=== PATIENT | male | born 1980 | race Caucasian/White ===

== ENCOUNTER 2016-07-21 21:48 | Emergency (ER) | payer MEDICARE, OTHER ==
[~2016-07-21] VITALS: Ht 190.5 cm; Wt 90.7 kg
[~2016-07-21 21:48] MED LIST: CLARITIN10 MG PO; ZITHROMAX Z PA250 MG PO
[2016-07-21 22:00] VITALS: BP 125/82
[2016-07-21 23:58] LABS: BASO % 0.6 % (0.0-1.0); EOS # 0.4 10*3/uL (0.0-0.4); EOS % 8.1 % (1.0-4.0); HEMATOCRIT 37.9 % (42.0-52.0); HEMOGLOBIN 12.5 g/dl (14.0-18.0); LYMPH # 1.7 10*3/uL (1.3-4.4); LYMPH % 35.3 % (27.0-41.0); MEAN CELL VOLUME 96.9 fl (80.0-94.0); MEAN PLATELET VOLUME 12.9 fl (9.6-12.3); MONO # 0.4 10*3/uL (0.1-1.0); MONO % 7.9 % (3.0-9.0); NEUT # 2.2 10*3/uL (2.3-7.9); NEUT % 47.7 % (47.0-73.0); PLATELET COUNT AUTOMATED 121 10*3/uL (130-400); RED BLOOD COUNT 3.91 10*6/uL (4.50-5.90); RED CELL DISTRI WIDTH 13.3 % (0-14.5); WHITE BLOOD COUNT 4.7 10*3/uL (4.8-10.8)
[2016-07-22 00:08] LABS: INTERNATIONAL NORM RATIO 1.1 (2.0-3.5)
[2016-07-22 00:14] LABS: ALBUMIN 3.3 gm/dl (3.1-4.5); ALKALINE PHOSPHATASE 177 U/L (45-117); BILIRUBIN, DIRECT 0.2 mg/dL (0.0-0.2); BILIRUBIN, TOTAL 0.7 mg/dl (0.2-1.0); BUN 25 mg/dl (7-24); CARBON DIOXIDE 31 mmol/L (21-32); CHLORIDE 103 mmol/L (98-107); EST GLOM FILT AFRICAN AMERICAN > 60 ml/min; GLUCOSE 86 mg/dL (65-99); MAGNESIUM 2.1 mg/dL (1.5-2.1); POTASSIUM 4.1 mmol/L (3.5-5.1); SGPT/ALT 47 U/L (12-78); SODIUM 143 mmol/L (136-145); TOTAL PROTEIN 7.5 gm/dL (6.4-8.2)
[2016-07-22 00:15] LABS: SGOT/AST 20 IU/L (3-35)
[2016-07-22 00:16] LABS: TROPONIN I < 0.015 ng/ml (<0.045)
[2016-07-22] MEDS ORDERED: CELEXA40 MG PO (00:22)
[2016-07-22] MEDS ORDERED: BACLOFEN20 M1 PO (00:22)
[2016-07-22] MEDS ORDERED: MY FAVORITE MU237 ML PEG (00:23)
[2016-07-22] MEDS ORDERED: DEPAKOTE250 MG PEG (00:24)
[2016-07-22] MEDS ORDERED: DOCUSATE S100 MG/10 PEG (00:26)
[2016-07-22] MEDS ORDERED: FLONASE ALLERG9.9 ML NAS (00:27)
[2016-07-22] MEDS ORDERED: FENTANYL25 MCG/HR TD (00:27)
[2016-07-22] MEDS ORDERED: METOPROLOL25 MG PEG (00:28)
[2016-07-22] MEDS ORDERED: NEURONTIN100 MG PEG (00:29)
[2016-07-22] MEDS ORDERED: RISPERDAL0.5 MG PEG (00:29)
[2016-07-22] MEDS ORDERED: RISPERDAL1 M1 PEG (00:30)
[2016-07-22] MEDS ORDERED: RISPERDAL2 M1 PEG (00:31)
[2016-07-22] MEDS ORDERED: ZINC SULFATE220 M2 PEG (00:32)
[2016-07-22] MEDS ORDERED: MAGNESIUM ELEM300 MG PEG (00:34)
[2016-07-22] MEDS ORDERED: BISACODYL10 MG RC (00:35)
[2016-07-22] MEDS ORDERED: MILK OF MA400 MG/5 M PEG (00:36)
[2016-07-22] MEDS ORDERED: NORCO 5-325 TA1 EACH PEG (00:37)
== END 2016-07-22 03:57 | disposition home or self-care (01) ==
LOC: ED 21:48
PROVIDERS: Emergency Medicine
DX: R05 Cough (principal); Z88.0 Allergy status to penicillin; Z88.8 Allergy status to other drugs, medicaments and biological substances; Z90.49 Acquired absence of other specified parts of digestive tract; Z79.899 Other long term (current) drug therapy

== ENCOUNTER → 2016-08-10 | Outpatient (CLI) | payer MEDICARE, OTHER ==
[~2016-08-10] MED LIST changes: +BACLOFEN20 M1 PO; +BISACODYL10 MG RC; +CELEXA40 MG PO; +DEPAKOTE250 MG PEG; +DOCUSATE S100 MG/10 PEG; +FENTANYL25 MCG/HR TD; +FLONASE ALLERG9.9 ML NAS; +MAGNESIUM ELEM300 MG PEG; +METOPROLOL25 MG PEG; +MILK OF MA400 MG/5 M PEG; +MY FAVORITE MU237 ML PEG; +NEURONTIN100 MG PEG; +NORCO 5-325 TA1 EACH PEG; +RISPERDAL0.5 MG PEG; +RISPERDAL1 M1 PEG; +RISPERDAL2 M1 PEG; +ZINC SULFATE220 M2 PEG
== END | disposition home or self-care (01) ==
LOC: CT 12:15
DX: Z12.11 Encounter for screening for malignant neoplasm of colon (principal); E44.1 Mild protein-calorie malnutrition; R73.9 Hyperglycemia, unspecified; D53.9 Nutritional anemia, unspecified; R93.8 Abnormal findings on diagnostic imaging of other specified body structures; F20.9 Schizophrenia, unspecified; G62.9 Polyneuropathy, unspecified; I10 Essential (primary) hypertension; K94.23 Gastrostomy malfunction; L89.90 Pressure ulcer of unspecified site, unspecified stage; R05 Cough; R09.89 Other specified symptoms and signs involving the circulatory and respiratory systems

== ENCOUNTER 2016-09-12 17:22 | Emergency (ER) | payer MEDICARE, OTHER ==
[~2016-09-12] VITALS: Ht 177.8 cm; Wt 68.0 kg
[2016-09-12 18:25] LABS: BASO % 0.2 % (0.0-1.0); EOS # 0.1 10*3/uL (0.0-0.4); EOS % 2.5 % (1.0-4.0); HEMATOCRIT 44.4 % (42.0-52.0); HEMOGLOBIN 14.4 g/dl (14.0-18.0); LYMPH # 1.6 10*3/uL (1.3-4.4); LYMPH % 30.1 % (27.0-41.0); MEAN CELL VOLUME 97.6 fl (80.0-94.0); MEAN CORPUSCULAR HGB 31.6 pg (27.0-31.0); MEAN CORPUSCULAR HGB CONC 32.4 g/dl (33.0-37.0); MEAN PLATELET VOLUME 13.5 fl (9.6-12.3); MONO # 0.6 10*3/uL (0.1-1.0); MONO % 10.8 % (3.0-9.0); NEUT % 56.2 % (47.0-73.0); PLATELET COUNT AUTOMATED 116 10*3/uL (130-400); RED BLOOD COUNT 4.55 10*6/uL (4.50-5.90); RED CELL DISTRI WIDTH 13.5 % (0-14.5); WHITE BLOOD COUNT 5.3 10*3/uL (4.8-10.8)
[2016-09-12 18:41] LABS: ALBUMIN 3.6 gm/dl (3.1-4.5); ALKALINE PHOSPHATASE 176 U/L (45-117); BILIRUBIN, TOTAL 0.5 mg/dl (0.2-1.0); BUN 21 mg/dl (7-24); CARBON DIOXIDE 31 mmol/L (21-32); CHLORIDE 108 mmol/L (98-107); EST GLOM FILT AFRICAN AMERICAN > 60 ml/min; GLUCOSE 91 mg/dL (65-99); POTASSIUM 4.1 mmol/L (3.5-5.1); SGOT/AST 41 IU/L (3-35); SGPT/ALT 105 U/L (12-78); SODIUM 147 mmol/L (136-145); TOTAL PROTEIN 7.5 gm/dL (6.4-8.2)
[2016-09-12 18:42] LABS: TROPONIN I < 0.015 ng/ml (<0.045)
[2016-09-12] MEDS ORDERED: FLUCONAZOLE100 MG PO (20:34)
[2016-09-12 20:49] VITALS: BP 116/71
== END 2016-09-12 20:59 | disposition home or self-care (01) ==
LOC: ED 17:22
PROVIDERS: Nurse Practitioner Family
DX: B37.0 Candidal stomatitis (principal); Z88.0 Allergy status to penicillin; Z88.8 Allergy status to other drugs, medicaments and biological substances; Z90.49 Acquired absence of other specified parts of digestive tract; Z79.899 Other long term (current) drug therapy

== ENCOUNTER → 2016-10-05 | Outpatient (CLI) | payer MEDICARE, OTHER ==
[~2016-10-05] MED LIST changes: +FLUCONAZOLE100 MG PO
== END | disposition home or self-care (01) ==
LOC: RAD 10:03
DX: J40 Bronchitis, not specified as acute or chronic (principal); L98.419 Non-pressure chronic ulcer of buttock with unspecified severity; M25.551 Pain in right hip; M25.552 Pain in left hip; M24.652 Ankylosis, left hip; M24.651 Ankylosis, right hip; R09.89 Other specified symptoms and signs involving the circulatory and respiratory systems

== ENCOUNTER → 2016-10-10 | Outpatient (CLI) | payer MEDICARE, OTHER ==
--- NOTE | ~2016-10-10 | WRIGHTHP ---
[place], [place] PATIENT HISTORY AND PHYSICAL EXAM NAME: SOTO GONZALEZ [facility] #: [id number] UNIT #: [id number] ROOM: DOCTOR: VAL CaliCORBY BIRTHDATE: [birth year] DOS: 10/10/2016 CHIEF COMPLAINT: Pressure ulcer of the buttock area. HISTORY OF PRESENT ILLNESS: This is a 36-year-old male with a history of traumatic brain injury in 2010. He is a nonverbal paraplegic who has been in the [facility] for several years now, but now currently is at home. His mother is taking care of. She brought him in as there was a concern that he did have a pressure ulcer on the left buttock area. He has home health as well and she says they have been using any dressing that is available, sometimes a foam, sometimes a gauze, some type of silver type of wound product, she is not sure which one, but she was worried about it and wanted him to be evaluated. PAST MEDICAL HISTORY: Significant for an appendectomy 1999, hernia repair at the age of 7, paraplegia, nonverbal, traumatic brain injury. There is a history of hypertension. He has a PEG tube placement, history of broken neck, chronic bronchitis, Halo placement in 2010. ALLERGIES: PENICILLIN, BENZOCAINE AND PENICILLIN G. SOCIAL HISTORY: He is a former smoker. He is single, currently lives at home with his mother. No drug use or alcohol use is noted. MEDICATIONS: Neurontin 100 mg daily, valproic acid 250 daily, Risperdal 1 mg daily, metoprolol 25 b.i.d., hydrocodone and acetaminophen 5/325 one q. 6 hours, citalopram 40 mg daily and baclofen 10 mg t.i.d. REVIEW OF SYSTEMS: Unobtainable. He is able to motion with his hands at some points. He does seem to follow some commands. He does not appear to complain of pain with the pressure ulcer, which is located in the left buttock area. OBJECTIVE: VITAL SIGNS: Stable. Temperature 98.7, pulse of 74, respirations 18, blood pressure is 84/46. GENERAL: This is a male who appears older than his stated age, cachectic, chronically ill-appearing, slightly pale to examination. HEENT: Sclerae anicteric. His tongue is moist. He does have a facial grimace. He is contracted. He is in no acute distress. NECK: There is no JVD. LUNGS: Clear to auscultation. CARDIOVASCULAR: S1, S2 regular rate and rhythm. No murmur appreciable. ABDOMEN: Soft. EXTREMITIES: There is no calf tenderness. The patient was examined where the ulcer had been as there is an area of what appears to be a healed ulcer on the left buttock, it is not opened at the present time, it is scabbed over, this is a little bit of dry skin, but otherwise it appears healed. ASSESSMENT AND PLAN: Healed pressure ulcer. At this point, the patient will be discharged from the wound clinic. I would keep the area continued to be [place], [place] PATIENT HISTORY AND PHYSICAL EXAM NAME: SOTO GONZALEZ UNIT #: [id number] ROOM: DOCTOR: CORBY NEAL M.D. BIRTHDATE: [birth year] protected with a foam dressing for now. His mother is here and appears to be aware of causes of pressure ulcers and now that the wound is healed at this point, we will continue to keep it protected for the next couple of weeks. If for some reason it reopens and he needs to come back to the wound clinic, we would be happy to see him. CORBY NEAL MD CM:HISPHYS:PATIENT HISTORY AND PHYSICAL EXAMINATION [id number] CORBY NEAL M.D. 10/11/16 0747 interface
== END ==
LOC: WOUNDCARE 02:07
DX: L89.329 Pressure ulcer of left buttock, unspecified stage (principal); I10 Essential (primary) hypertension; G82.20 Paraplegia, unspecified; Z87.891 Personal history of nicotine dependence

== ENCOUNTER 2016-11-07 09:21 | Emergency (ER) | payer MEDICARE, OTHER ==
[~2016-11-07] VITALS: Ht 182.8 cm; Wt 90.7 kg
[2016-11-07 09:29] VITALS: BP 109/62
== END 2016-11-07 11:38 | disposition home or self-care (01) ==
LOC: ED 09:21
DX: K94.23 Gastrostomy malfunction (principal); Z88.0 Allergy status to penicillin; Z88.4 Allergy status to anesthetic agent; Z79.899 Other long term (current) drug therapy; Z90.49 Acquired absence of other specified parts of digestive tract

== ENCOUNTER → 2016-11-07 | Outpatient (CLI) | payer MEDICARE, OTHER | END | disposition home or self-care (01) | LOC: LAB 11:54 | PROVIDERS: Family Medicine | DX: Z79.899 Other long term (current) drug therapy (principal) ==

== ENCOUNTER → 2016-11-17 | Outpatient (CLI) | payer MEDICARE, OTHER | LOC: WOUNDCARE 02:20 → ORTHO 15:20 → WOUNDCARE 15:31 | DX: L89.323 Pressure ulcer of left buttock, stage 3 (principal); I10 Essential (primary) hypertension; J44.9 Chronic obstructive pulmonary disease, unspecified; Z87.891 Personal history of nicotine dependence ==

== ENCOUNTER → 2016-12-01 | Outpatient (CLI) | payer MEDICARE, OTHER ==
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
== END ==
LOC: WOUNDCARE 03:04
DX: L89.323 Pressure ulcer of left buttock, stage 3 (principal)

== ENCOUNTER → 2016-12-20 | Outpatient (CLI) | payer MEDICARE, OTHER ==
--- NOTE | ~2016-12-20 | PR ---
[place], [place] PROGRESS NOTE NAME: SOTO GONZALEZ [facility] #: [id number] UNIT #: [id number] ROOM: DOCTOR: VAL CaliCORBY BIRTHDATE: [birth year] DOS: 12/20/2016 WOUND CARE PROGRESS NOTE CHIEF COMPLAINT: Pressure ulcer followup. HISTORY OF PRESENT ILLNESS: This is a 36-year-old male who has been coming to the Wound Clinic for 4 weeks now. He is essentially bedbound and dependent on all of his ADLs. He has had a pressure ulcer of his left ischium stage 3 that has been stable and gradually improving. He had to miss his last appointment due to the fact that he became ill with the pneumonia and had been hospitalized for approximately 4 days according to the mother, they were using some similar type of foam dressing as we were. We had changed him to a collagen last week. She thinks the wound is looking better. There is very little drainage. They sent him from the hospital. He was at [place]. They sent him home with a wedge foam to be utilized to keep him off of his hip area, so she seems to really like that. There are no other specific complaints. OBJECTIVE: VITAL SIGNS: Stable. Temperature 98.5, pulse of 80, respirations 18, blood pressure is 102/64. WOUND EXAMINATION: The wound is measuring smaller at 0.9 x 0.4 x 0.1. There is some adherent slough present, but overall it is looking quite good. There is no sign of infection. Due to the fact that the fibrin and slough still present, I recommend debridement, we will go ahead and do that today. Debridement was done with a curette. This was a selective debridement only. The tissue removed was just devitalized fibrin and slough. There was minimal bleeding that was controlled with pressure. Cetacaine spray was used for topical anesthesia. A curette was utilized. Post-debridement measurements are unchanged. The patient tolerated the debridement well. ASSESSMENT AND PLAN: Stage 3 pressure ulcer, which is slowly healing. We will continue with collagen AG as well as foam. We did use a double foam and the mother does think that did seem to kind of help improve the appearance in the wound. So, we will go ahead and do that again. Followup within one week. [place], [place] PROGRESS NOTE NAME: SOTO GONZALEZ UNIT #: [id number] ROOM: DOCTOR: CORBY NEAL M.D. BIRTHDATE: [birth year] CORBY NEAL MD CM:KWADWO [id number] CORBY NEAL M.D. 12/20/16 1727 interface
== END | disposition home or self-care (01) ==
LOC: WOUNDCARE 08:11
DX: L89.323 Pressure ulcer of left buttock, stage 3 (principal)

== ENCOUNTER → 2016-12-27 | Outpatient (CLI) | payer MEDICARE, OTHER ==
--- NOTE | ~2016-12-27 | PR ---
[place], [place] PROGRESS NOTE NAME: SOTO GONZALEZ [facility] #: [id number] UNIT #: [id number] ROOM: DOCTOR: VAL CaliCORBY BIRTHDATE: [birth year] DOS: 12/27/2016 CHIEF COMPLAINT: Followup of a pressure ulcer. HISTORY OF PRESENT ILLNESS: The location of the wound is left buttock area, ischial area. He is essentially bedbound and dependent on all of his ADLs. He is incontinent of both bowel and bladder. He was seen last week for followup of a stage 3 pressure ulcer that has been relatively superficial, but has been very slow to heal. We had put him on a collagen and had been using a double layer foam to see if that would help alleviate some of the pressure. The patient comes in today. His mother is at his side, she thinks that the wound is looking worse. He has had several episodes of incontinence. She had to change the dressing at least 2 times a day and she has noticed an area that she felt was open just yesterday, distal to that original wound. No fevers or chills are noted. He has several caregivers who are present throughout the day to help him. His vitals are stable. Temperature is 98.7, pulse is 84, respiratory rate 18, and blood pressure is 100/60. The wound is measuring 0.5 cm x 0.6 cm x 0.1 cm. There is fibrin slough present, seems a little bit more pronounced than last week; however, somewhat distal to that wound there is an area where it looks like it may have opened, but now it is not actually open, but there is a little bit of dark discoloration which makes it look like there may have been some bleeding in that area, possibly from a shear force injury, but currently it is not actually open. A debridement was done, this is selective to remove just the fibrin slough. This occurred with a curette. There was minimal to moderate bleeding, only the devitalized tissue was removed. The post-debridement measurements 0.9 cm x 0.5 cm x 0.1 cm, and this is still stage 3 pressure ulcer and appears relatively superficial. ASSESSMENT AND PLAN: Stage 3 pressure ulcer of the left ischium with very slow to heal. There is no sign of infection. He is frequently incontinent and his mother states that the dressing gets wet quite a bit, so she has to change it twice a day. I would like to go back to the TheraHoney sheet as there is still some fibrin slough present and I do not think it is ready for the collagen yet. We will continue with the foam but only one layer instead of two-layers. We discussed offloading once again. He has a pretty nice cushion for his wheelchair. He has a specialty mattress as well and they have several devices to help try to alleviate the pressure from the area. We need to consider getting albumin and prealbumin blood work the next time he is here if there has been no improvement. I did ask her to keep an eye on the area that looks like it may have been some shear injury, although currently is not open and asked her to keep an eye on this as well and the foam is covering this area too. If no change by next week, we may want to consider trying a different dressing such as hydrocolloid that may be staying in place, a little bit more than the foam due to the several incontinent episodes that he has. Followup is in one week. [place], [place] PROGRESS NOTE NAME: CARLOSSOTO Jessica UNIT #: [id number] ROOM: DOCTOR: CORBY NEAL M.D. BIRTHDATE: [birth year] CORBY NEAL MD CM:KWADWO [phone] CORBY NEAL M.D. 12/28/16 0346 interface
== END | disposition home or self-care (01) ==
LOC: WOUNDCARE
DX: L89.323 Pressure ulcer of left buttock, stage 3 (principal)

== ENCOUNTER → 2017-01-03 | Outpatient (CLI) | payer MEDICARE, OTHER ==
--- NOTE | ~2017-01-03 | PR ---
[place], [place] PROGRESS NOTE NAME: SOTO GONZALEZ [facility] #: [id number] UNIT #: [id number] ROOM: DOCTOR: CORBY NEAL M.D. BIRTHDATE: [birth year] DOS: 01/03/2017 CHIEF COMPLAINT: Follow up of a pressure ulcer of the left ischium. HISTORY OF PRESENT ILLNESS: This is a 36-year-old male who has been coming to the Wound Clinic for 6 weeks now with a pressure ulcer of the left ischium. He is essentially bedbound, immobile and is dependent on all his ADLs. He is incontinent of bowel and bladder. The wound remains open; it does drain. We switched him to TheraHoney sheet last week and his mother comes in today saying that she does not think it looks any better. They are trying to keep the pressure off the wound as much as possible. PHYSICAL EXAMINATION: He is afebrile, pulse is 76, respirations 18, blood pressure is 102/60. The wound is measuring bigger than last week at 1.1 x 0.5. It essentially has a very similar appearance, superficial ulceration with fibrin slough noted as before, perhaps maybe not as much fibrin slough, but it is still present. It remains fairly superficial at this point. There is no surrounding cellulitis or evidence of acute infection. Due to the continued slough a selective debridement was done to remove it with a curette. This was a selective debridement only. There was minimal to moderate bleeding controlled with pressure. Post-debridement measurements are 1 x 0.6 x 0.1. ASSESSMENT AND PLAN: Stage 3 pressure ulcer, which really has not improved and has actually been getting a little bit bigger most recent week or two, so we will go ahead and change to a different regimen. I would like to try the DuoDERM at this point and see if this helps with the wound and we can use TheraHoney today and follow, but at home, I would like to use just the DuoDERM and see how that works. Followup is in one week. Lab work has been ordered for the patient as well as a swab culture. CORBY NEAL MD CM:PNTRANS [id number] CORBY NEAL M.D. 01/04/17 0335 interface
[2017-01-03 15:04] LABS: BASO % 0.8 % (0.0-1.0); EOS # 0.4 10*3/uL (0.0-0.4); EOS % 7.9 % (1.0-4.0); HEMATOCRIT 39.7 % (42.0-52.0); HEMOGLOBIN 13.1 g/dl (14.0-18.0); LYMPH # 1.5 10*3/uL (1.3-4.4); LYMPH % 31.4 % (27.0-41.0); MEAN CELL VOLUME 100.3 fl (80.0-94.0); MEAN CORPUSCULAR HGB 33.1 pg (27.0-31.0); MEAN PLATELET VOLUME 13.9 fl (9.6-12.3); MONO # 0.4 10*3/uL (0.1-1.0); MONO % 7.9 % (3.0-9.0); NEUT # 2.5 10*3/uL (2.3-7.9); NEUT % 51.8 % (47.0-73.0); PLATELET COUNT AUTOMATED 122 10*3/uL (130-400); RED BLOOD COUNT 3.96 10*6/uL (4.50-5.90); RED CELL DISTRI WIDTH 13.4 % (0-14.5); WHITE BLOOD COUNT 4.8 10*3/uL (4.8-10.8)
[2017-01-03 15:36] LABS: ALBUMIN 3.4 gm/dl (3.1-4.5); BUN 12 mg/dl (7-24); CHLORIDE 106 mmol/L (98-107); CREATININE 0.26 mg/dL (0.70-1.30); POTASSIUM 4.1 mmol/L (3.5-5.1); SGOT/AST 15 IU/L (3-35); SGPT/ALT 29 U/L (12-78); SODIUM 141 mmol/L (136-145); TOTAL PROTEIN 7.1 gm/dL (6.4-8.2)
[2017-01-03 15:37] LABS: ALKALINE PHOSPHATASE 119 U/L (45-117); PREALBUMIN 17 mg/dl (20-40)
== END | disposition home or self-care (01) ==
LOC: LAB 03:14 → WOUNDCARE 03:14
PROVIDERS: Internal Medicine
DX: L89.323 Pressure ulcer of left buttock, stage 3 (principal); B96.89 Other specified bacterial agents as the cause of diseases classified elsewhere

== ENCOUNTER → 2017-01-09 | Outpatient (CLI) | payer MEDICARE, OTHER ==
--- NOTE | ~2017-01-09 | PR ---
[place], [place] PROGRESS NOTE [id number] UNIT #: [id number] ROOM: DOCTOR: VAL CaliCORBY BIRTHDATE: [birth year] DOS: 01/09/2017 CHIEF COMPLAINT: Followup of a pressure ulcer stage III of the left ischium. The patient is brought in by his mother today. She reports really no change in the wound. He has a lot of excoriation around the vanessa area and scrotal area. He is having a large amount of diarrhea 3-4 times a day. The dressings frequently gets wet and moist and she has to change it multiple times. Apparently, they not get the DuoDERM, it was somehow I guess did not get ordered, so that she has been using the TheraHoney. Recent swab culture was positive for something like Staph aureus. Bactroban ointment was prescribed. They have been using that. In the meantime, there is no other specific complaints. PHYSICAL EXAMINATION: VITAL SIGNS: Temperature is 98, pulse of 74, respirations 18, blood pressure is 100/58. The wound is measuring the same, it is 1.0 x 0.7 x 0.1. There is still fairly superficial area. There is fibrin slough present. The periwound does not appear cellulitic. There are no evidence of acute infection, but it still has some fibrin slough present. I would like to try the Santyl instead of the TheraHoney, which we have been using. There has been really no improvement with the fibrin and slough with the TheraHoney. He has had some debridement done, it has not really improved much the wound margins either, so we would like to go ahead and hold off on debridement this week and try and use Santyl plus Bactroban and order the continued bordered foam. I did discuss with his mother about the diarrhea in that she should definitely discuss this with the primary care physician. I did notice his prealbumin was low at 17. I wrote a script for Arginate. I said if it was okay with the PCP to go ahead and use this once a day and to maybe hold off until the diarrhea has improved, to not start until diarrhea has improved. Followup is in 1 week. CORBY NEAL MD CM:KWADWO [id number] CORBY NEAL M.D. 01/10/17 1452 interface
== END | disposition home or self-care (01) ==
LOC: WOUNDCARE 01:53
DX: L89.323 Pressure ulcer of left buttock, stage 3 (principal)

== ENCOUNTER → 2017-01-17 | Outpatient (CLI) | payer MEDICARE, OTHER | END | disposition home or self-care (01) | LOC: WOUNDCARE 02:05 | DX: L89.153 Pressure ulcer of sacral region, stage 3 (principal); Z87.891 Personal history of nicotine dependence; I10 Essential (primary) hypertension ==

== ENCOUNTER → 2017-01-24 | Outpatient (CLI) | payer MEDICARE, OTHER | END | disposition home or self-care (01) | LOC: WOUNDCARE 01:24 | DX: L89.153 Pressure ulcer of sacral region, stage 3 (principal); I10 Essential (primary) hypertension; Z87.891 Personal history of nicotine dependence ==

== ENCOUNTER → 2017-02-02 | Outpatient (CLI) | payer MEDICARE, OTHER | END | disposition home or self-care (01) | LOC: WOUNDCARE 01:10 | DX: L89.153 Pressure ulcer of sacral region, stage 3 (principal); I10 Essential (primary) hypertension; Z87.891 Personal history of nicotine dependence ==

== ENCOUNTER 2017-02-23 14:22 | Inpatient (IN) | payer MEDICARE, OTHER ==
[~2017-02-23] VITALS: Ht 187.9 cm; Wt 55.4 kg
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
[2017-02-23 14:49] VITALS: BP 115/72
[2017-02-23] MEDS ORDERED: Duragesic 25 M25 MCG TD (14:52)
[2017-02-23 15:52] LABS: BASO # 0.1 10*3/uL (0.0-0.1); BASO % 1.2 % (0.0-1.0); EOS # 0.8 10*3/uL (0.0-0.4); EOS % 11.3 % (1.0-4.0); HEMATOCRIT 40.8 % (42.0-52.0); HEMOGLOBIN 13.4 g/dl (14.0-18.0); LYMPH # 1.2 10*3/uL (1.3-4.4); LYMPH % 17.2 % (27.0-41.0); MEAN CELL VOLUME 97.4 fl (80.0-94.0); MEAN CORPUSCULAR HGB CONC 32.8 g/dl (33.0-37.0); MONO # 0.5 10*3/uL (0.1-1.0); MONO % 6.9 % (3.0-9.0); NEUT # 4.3 10*3/uL (2.3-7.9); NEUT % 63.1 % (47.0-73.0); PLATELET COUNT AUTOMATED 143 10*3/uL (130-400); RED BLOOD COUNT 4.19 10*6/uL (4.50-5.90); RED CELL DISTRI WIDTH 12.7 % (0-14.5); WHITE BLOOD COUNT 6.8 10*3/uL (4.8-10.8)
[2017-02-23 16:02] LABS: ACT PARTIAL THROMBO TIME 26.1 SECONDS (20.8-31.5); INTERNATIONAL NORM RATIO 1.1 (2.0-3.5)
[2017-02-23 16:08] LABS: ALBUMIN 3.6 gm/dl (3.1-4.5); ALKALINE PHOSPHATASE 164 U/L (45-117); BUN 21 mg/dl (7-24); CHLORIDE 103 mmol/L (98-107); CREATININE 0.28 mg/dL (0.70-1.30); POTASSIUM 4.2 mmol/L (3.5-5.1); SGOT/AST 16 IU/L (3-35); SGPT/ALT 28 U/L (12-78); SODIUM 139 mmol/L (136-145); TOTAL PROTEIN 7.5 gm/dL (6.4-8.2)
[2017-02-23 16:30] VITALS: BP 18/70
[2017-02-23 17:30] VITALS: BP 102/57
[2017-02-23 20:00] VITALS: BP 108/58
[2017-02-24] VITALS: BP 106/56; BP 144/73
[2017-02-24 06:54] LABS: ALBUMIN 2.9 gm/dl (3.1-4.5); ALKALINE PHOSPHATASE 152 U/L (45-117); BUN 16 mg/dl (7-24); CHLORIDE 103 mmol/L (98-107); CHOLESTEROL 103 mg/dL (<200); CREATININE 0.19 mg/dL (0.70-1.30); FREE T4 1.29 ng/dl (0.76-1.46); HDL CHOLESTEROL 42 mg/dl (40-60); LDL CHOLESTEROL 46 mg/dL (9-159); PHOSPHOROUS 3.2 mg/dL (2.5-4.9); POTASSIUM 3.9 mmol/L (3.5-5.1); SGOT/AST 16 IU/L (3-35); SGPT/ALT 24 U/L (12-78); SODIUM 137 mmol/L (136-145); TOTAL PROTEIN 6.7 gm/dL (6.4-8.2); TRIGLYCERIDES 77 mg/dl (<150); VLDL CHOLESTEROL 15 mg/dL (6-40)
[2017-02-24 08:00] VITALS: BP 122/70
[2017-02-24 08:14] LABS: BASO # 0.1 10*3/uL (0.0-0.1); BASO % 1.2 % (0.0-1.0); EOS # 0.7 10*3/uL (0.0-0.4); EOS % 13.6 % (1.0-4.0); HEMATOCRIT 36.2 % (42.0-52.0); LYMPH # 1.3 10*3/uL (1.3-4.4); LYMPH % 24.9 % (27.0-41.0); MEAN CELL VOLUME 97.6 fl (80.0-94.0); MEAN CORPUSCULAR HGB 32.3 pg (27.0-31.0); MEAN CORPUSCULAR HGB CONC 33.1 g/dl (33.0-37.0); MEAN PLATELET VOLUME 13.5 fl (9.6-12.3); MONO # 0.5 10*3/uL (0.1-1.0); MONO % 9.5 % (3.0-9.0); NEUT # 2.6 10*3/uL (2.3-7.9); NEUT % 50.4 % (47.0-73.0); PLATELET COUNT AUTOMATED 115 10*3/uL (130-400); RED BLOOD COUNT 3.71 10*6/uL (4.50-5.90); RED CELL DISTRI WIDTH 12.7 % (0-14.5); WHITE BLOOD COUNT 5.1 10*3/uL (4.8-10.8)
[2017-02-24 08:24] LABS: VITAMIN D, 25-HYDROXY 28.6 ng/mL (30-100)
[2017-02-24 11:23] LABS: BILIRUBIN NEGATIVE (NEGATIVE); BLOOD NEGATIVE (NEGATIVE); CLARITY CLEAR (CLEAR); COLOR YELLOW (YELLOW); GLUCOSE NEGATIVE (NEGATIVE); KETONE NEGATIVE (NEGATIVE); LEUKO ESTERASE NEGATIVE (NEGATIVE); NITRITE NEGATIVE (NEGATIVE); UROBILINOGEN 0.2 E.U./dl (0.2-1.0)
[2017-02-24 11:46] LABS: BACTERIA 1+
[2017-02-24 12:00] VITALS: BP 112/68
[2017-02-24 16:00] VITALS: BP 124/62
[2017-02-24 20:00] VITALS: BP 103/86
[2017-02-25] VITALS: BP 109/69
[2017-02-25 08:00] VITALS: BP 108/63
[2017-02-25 12:00] VITALS: BP 103/57
[2017-02-25 16:00] VITALS: BP 116/62
[2017-02-25 20:00] VITALS: BP 109/58
[2017-02-26] VITALS: BP 113/61
[2017-02-26 08:00] VITALS: BP 111/75
[2017-02-26 12:00] VITALS: BP 105/76
[2017-02-26 16:00] VITALS: BP 117/65
[2017-02-26 20:00] VITALS: BP 112/62
[2017-02-27] VITALS (9 sets, daily range): BP systolic 95–126; BP diastolic 54–78
[2017-02-28] VITALS: BP 109/64
[2017-02-28 06:55] LABS: BASO # 0.1 10*3/uL (0.0-0.1); BASO % 1.1 % (0.0-1.0); EOS # 0.4 10*3/uL (0.0-0.4); EOS % 6.7 % (1.0-4.0); HEMATOCRIT 38.2 % (42.0-52.0); HEMOGLOBIN 12.4 g/dl (14.0-18.0); LYMPH # 0.9 10*3/uL (1.3-4.4); LYMPH % 14.9 % (27.0-41.0); MEAN CELL VOLUME 98.7 fl (80.0-94.0); MEAN CORPUSCULAR HGB CONC 32.5 g/dl (33.0-37.0); MEAN PLATELET VOLUME 13.6 fl (9.6-12.3); MONO # 0.7 10*3/uL (0.1-1.0); MONO % 12.1 % (3.0-9.0); NEUT # 3.7 10*3/uL (2.3-7.9); PLATELET COUNT AUTOMATED 130 10*3/uL (130-400); RED BLOOD COUNT 3.87 10*6/uL (4.50-5.90); RED CELL DISTRI WIDTH 12.5 % (0-14.5); WHITE BLOOD COUNT 5.7 10*3/uL (4.8-10.8)
[2017-02-28 07:27] LABS: BUN 15 mg/dl (7-24); CHLORIDE 106 mmol/L (98-107); POTASSIUM 3.6 mmol/L (3.5-5.1); SODIUM 144 mmol/L (136-145)
[2017-02-28 07:29] LABS: CREATININE 0.22 mg/dL (0.70-1.30)
[2017-02-28 08:00] VITALS: BP 91/71
[2017-02-28 12:00] VITALS: BP 116/70
[2017-02-28 16:00] VITALS: BP 106/78
[2017-02-28 20:00] VITALS: BP 117/79
[2017-03-01] VITALS: BP 101/48
[2017-03-01 05:55] LABS: BASO # 0.1 10*3/uL (0.0-0.1); EOS # 0.6 10*3/uL (0.0-0.4); EOS % 10.8 % (1.0-4.0); HEMATOCRIT 34.4 % (42.0-52.0); HEMOGLOBIN 11.4 g/dl (14.0-18.0); LYMPH # 1.3 10*3/uL (1.3-4.4); LYMPH % 24.5 % (27.0-41.0); MEAN CELL VOLUME 98.6 fl (80.0-94.0); MEAN CORPUSCULAR HGB 32.7 pg (27.0-31.0); MEAN CORPUSCULAR HGB CONC 33.1 g/dl (33.0-37.0); MEAN PLATELET VOLUME 13.1 fl (9.6-12.3); MONO # 0.5 10*3/uL (0.1-1.0); MONO % 10.1 % (3.0-9.0); NEUT # 2.8 10*3/uL (2.3-7.9); NEUT % 53.4 % (47.0-73.0); PLATELET COUNT AUTOMATED 128 10*3/uL (130-400); RED BLOOD COUNT 3.49 10*6/uL (4.50-5.90); RED CELL DISTRI WIDTH 12.6 % (0-14.5); WHITE BLOOD COUNT 5.3 10*3/uL (4.8-10.8)
[2017-03-01 05:56] LABS: BUN 14 mg/dl (7-24); CHLORIDE 104 mmol/L (98-107); CREATININE 0.24 mg/dL (0.70-1.30); SODIUM 143 mmol/L (136-145)
[2017-03-01 05:59] LABS: VANCOMYCIN TROUGH 14.3 ug/mL (10-20)
[2017-03-01 08:00] VITALS: BP 110/64
[2017-03-01] MEDS ORDERED: MAGNESIUM OXID400 MG PEG (10:22)
[2017-03-01] MEDS ORDERED: DOXYCYCLINE100 M3 PO (10:22)
[2017-03-01 13:13] LABS: URINE AMPHETAMINES < 1000 (1000ng/ml); URINE BARBITURATES < 200 (200ng/ml); URINE BENZODIAZEPINES < 200 (200ng/ml); URINE CANNABINOIDS (THC) < 50 (50ng/ml); URINE COCAINE < 300 (300ng/ml); URINE METHADONE < 300 (300ng/ml); URINE OPIATES > 300 (300ng/ml); URINE PHENCYCLIDINE < 25 (25ng/ml)
== END 2017-03-01 13:01 | disposition home health service (06) | DRG 570 ==
LOC: ED 14:22 → EDHOLD 17:03 → 4E 17:03
PROVIDERS: Emergency Medicine; Hospitalist; Internal Medicine; ADMIT Internal Medicine
PROC: BD1BYZZ Fluoroscopy of Mouth/Oropharynx using Other Contrast (ICD-10-PCS; 2017-02-24)
PROC: 0JBR0ZZ Excision of Left Foot Subcutaneous Tissue and Fascia, Open Approach (ICD-10-PCS; principal; 2017-02-27)
PROC: 0JB70ZZ Excision of Back Subcutaneous Tissue and Fascia, Open Approach (ICD-10-PCS; principal; 2017-02-27)
DX: L03.116 Cellulitis of left lower limb (principal); L89.153 Pressure ulcer of sacral region, stage 3; E44.0 Moderate protein-calorie malnutrition; G82.20 Paraplegia, unspecified; L89.621 Pressure ulcer of left heel, stage 1; R13.10 Dysphagia, unspecified; L89.611 Pressure ulcer of right heel, stage 1; L89.323 Pressure ulcer of left buttock, stage 3; D53.9 Nutritional anemia, unspecified; W19.XXXS Unspecified fall, sequela; D72.810 Lymphocytopenia; I10 Essential (primary) hypertension; M21.00 Valgus deformity, not elsewhere classified, unspecified site; J42 Unspecified chronic bronchitis; G89.4 Chronic pain syndrome; Z88.0 Allergy status to penicillin; Z88.8 Allergy status to other drugs, medicaments and biological substances; S06.9X0S Unspecified intracranial injury without loss of consciousness, sequela; Z79.899 Other long term (current) drug therapy; Z68.25 Body mass index [BMI] 25.0-25.9, adult

== ENCOUNTER → 2017-03-10 | Outpatient (CLI) | payer MEDICARE, OTHER ==
[~2017-03-10] MED LIST changes: +DOXYCYCLINE100 M3 PO; +Duragesic 25 M25 MCG TD; +MAGNESIUM OXID400 MG PEG
[2017-03-10 16:08] LABS: BILIRUBIN NEGATIVE (NEGATIVE); BLOOD TRACE-INTACT (NEGATIVE); CLARITY SL CLOUDY (CLEAR); COLOR YELLOW (YELLOW); GLUCOSE NEGATIVE (NEGATIVE); KETONE NEGATIVE (NEGATIVE); LEUKO ESTERASE TRACE (NEGATIVE); NITRITE NEGATIVE (NEGATIVE); PH 7.5 (5.0-9.0); UROBILINOGEN 0.2 E.U./dl (0.2-1.0)
== END | disposition home or self-care (01) ==
LOC: LAB 15:40
PROVIDERS: Family Medicine
DX: R61 Generalized hyperhidrosis (principal); L03.116 Cellulitis of left lower limb; Z79.899 Other long term (current) drug therapy

== ENCOUNTER → 2017-03-16 | Outpatient (CLI) | payer MEDICARE, OTHER | END | disposition home or self-care (01) | LOC: WOUNDCARE 01:08 | DX: T81.89XD Other complications of procedures, not elsewhere classified, subsequent encounter (principal); L89.323 Pressure ulcer of left buttock, stage 3; L89.619 Pressure ulcer of right heel, unspecified stage; L89.629 Pressure ulcer of left heel, unspecified stage; L89.153 Pressure ulcer of sacral region, stage 3; I10 Essential (primary) hypertension; Z87.891 Personal history of nicotine dependence; Y83.8 Other surgical procedures as the cause of abnormal reaction of the patient, or of later complication, without mention of misadventure at the time of the procedure ==

== ENCOUNTER 2017-08-06 16:41 | Inpatient (IN) | payer MEDICARE, OTHER ==
[~2017-08-06] VITALS: Ht 188 cm; Wt 57.7 kg
[2017-08-06] VITALS (9 sets, daily range): BP systolic 90–104; BP diastolic 46–63
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
--- NOTE | ~2017-08-06 | PROC NOTE ---
[place], [place] PROCEDURE NOTE NAME: SOTO GOZNALEZ UNIT #: [id number] ROOM: [facility] DOCTOR: EDDIE MCDONOUGH MD,BAUTISTA BIRTHDATE: [birth year] DOS: 08/08/2017 BRONCHOSCOPY NOTE PREOPERATIVE DIAGNOSES: The patient with volume loss. The patient refused infiltration involving the left lung with severe hypoxic respiratory failure. POSTOPERATIVE DIAGNOSES: Complete occlusion of the left lobe endobronchial tree and partially of left main stem bronchus. Evidence of acute pneumonia. PROCEDURE DESCRIPTION: Informed consent was obtained from the patient and family members. The patient was brought to the negative pressure room. Bronchoscope advanced to the endotracheal tube to the lower part of trachea. The lower part of trachea was noted with moderate amount of thick mucopurulent secretion mixture, which was suctioned out. Right upper, right middle, and right lower lobe bronchi were noted moderate amount of mucopurulent secretion, which was suctioned out. Complete occlusion of the left lower lobe bronchus noted with partial occlusion of the left main stem bronchus with thick mucus plug. Purulent secretion was removed after removal of the mucus plug. The purulent secretion removed and sent for cultures. Procedure well tolerated by the patient without any complication. Postoperative findings will be discussed with the patient and family member. No immediate treatment changes will be needed at this time. Any further treatment changes needs necessary will be done after the culture results. BAUTISTA MORGAN MD CM:PROCNOTE:PROCEDURE NOTE [id number] BAUTISTA MCDONOUGH MD
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
--- NOTE | ~2017-08-06 | PR ---
[place], [place] PROGRESS NOTE [id number] UNIT #: [id number] ROOM: [facility] DOCTOR: BAUTISTA BRANDON MD BIRTHDATE: [birth year] DOS: 08/08/2017 PULMONARY CRITICAL CARE EVALUATION AND MANAGEMENT SUBJECTIVE: The patient was seen and examined on 08/08/2017. He remains on mechanical ventilator at this time. The feeding was started. The patient yesterday was planned for bronchoscopy. He has been continued on mechanical ventilation, with bilevel and pressure-controlled mechanical ventilation. The ventilation has been tolerated. He has noted severe hypoxia and hypoxemia as the patient was laid on the left side in an attempt to change his bed. He was planned for bronchoscopy today. He has not been noted with any acute hemodynamic instability at the present time. The patient was noted with temperature elevation of 102.5 degree Fahrenheit. The endotracheal culture of the patient was noted with light growth of gram-negative bacilli with pending identification and sensitivities. OBJECTIVE: VITAL SIGNS: For the patient, which were recorded shows temperature 102.5 degree Fahrenheit to 101.7 degree Fahrenheit, respiratory rate of 28-30, the heart rate was noted 124-118, sinus tachycardia, and the blood pressure of the patient was noted as 88/52-118/68. Intake for the patient was recorded at 3.405 liters. The output was 503 mL. The pulse oxygen saturation on 60% oxygen supplementation was noted 99% saturation, then later on 100% oxygen supplementation noted as 100% after some adjustment in mechanical ventilation was made. HEENT: The patient remained orally intubated. Orogastric tube is in place. NECK: Supple. CARDIOVASCULAR: S1, S2 audible. LUNGS: Noted with decreased breath sounds on the left side. There were no crackles or wheezing. ABDOMEN: Soft, nontender. EXTREMITIES: Without any acute edema. SKIN: Visible skin, no lesions or rashes. MUSCULOSKELETAL: The patient with chronic deformities from paraplegia. LABORATORY DATA AND IMAGING STUDIES: CBC for the patient that was done this morning, WBC count 8.5, hemoglobin 7, hematocrit 24.4, platelet count 246,000. The chest x-ray of the patient that was done this morning was reviewed and it shows endotracheal tube tip was noted about 5 cm above the alex level, diffuse infiltration and consolidation still noted with possible some volume loss in the left side as well. The right lung was noted hyperinflated without any acute pulmonary infiltration. The vancomycin trough level 4.3. Blood culture from 08/06/2017 showed no bacterial growth. BMP this morning, glucose 105, BUN 16, creatinine was normal, sodium 150, potassium 2.9. Endotracheal aspirate culture light growth of gram-negative bacilli. The Gram stain showed many white blood cells, few epithelial cells, many gram-positive cocci and few gram-negative bacilli. Arterial blood gases this morning on 50% oxygen, pH of 7.56, pCO2 of 28, pO2 of 91.9. The prealbumin level was noted only 4.0. IMPRESSION: [place], [place] PROGRESS NOTE NAME: SOTO GONZALEZ UNIT #: [id number] ROOM: [facility] DOCTOR: BAUTISTA BRANDON MD BIRTHDATE: [birth year] 1. The patient who has been noted with severe hypoxemia, still remains persistent at this time with acute pneumonia, volume loss in the left side. 2. The patient with history of paraplegia as well. 3. The patient with protein-calorie malnutrition as well. 4. Chronic neurologic dysphagia with the PEG tube in place. PLAN OF MANAGEMENT: Proceed with bronchoscopy as planned for assessment of the current infiltration and volume loss. Continuation of the bronchodilators and oxygen supplementation. Continue current antibiotic of the patient until all the culture results will be known. Any modification in treatment if necessary will be done after bronchoscopy. Management of hypertension with intravenous fluid will be done. Use of vasopressors if necessary. Other supportive therapy, plan of management, ventilator bundle management. Usual care, other plan of therapy and care plan. Supportive care and treatment. Time spent in critical care evaluation and management of the patient excluding any billable procedure was 35 minutes. BAUTISTA MORGAN MD CM:PNTRANS [id number] BAUTISTA MCDONOUGH MD 08/09/17 0223 interface
--- NOTE | ~2017-08-06 | PR ---
[place], [place] PROGRESS NOTE NAME: SOTO GONZALEZ [facility] #: [id number] UNIT #: [id number] ROOM: [facility] DOCTOR: BAUTISTA BRANDON MD BIRTHDATE: [birth year] DOS: 08/10/2017 PULMONARY FOLLOWUP SUBJECTIVE: The patient was seen today on 08/10/2017, remains in Intensive Care Unit. He has not been noted symptoms of any chest pain. He has been noted awake. A small dose of Diprivan was used for the patient mostly for comfort. Antibiotics were continued. He has not been noted any acute hemodynamic instability for the present time. Feeding was continued with the PEG tube. Temperature noted as rectal temperature for the patient elevated, otherwise noted as normal temperature. The patient has not been noted any other major problem. The patient in the last 24 hours, he has a CT scan of the chest, abdomen and pelvis, which were done without contrast ordered by the primary care attending for the patient for the assessment of current acute anemia. The blood transfusion was given to the patient for the medical management of anemia yesterday. Stool for occult blood was noted as positive. OBJECTIVE: VITAL SIGNS: For the patient show temperature 101.4 degree Fahrenheit to 100 degrees Fahrenheit, respiratory rate 29-28. The heart rate of 96-104, blood pressure 111/61-103/58. Intake for the patient recorded as 3400 mL, output was 3550 mL. Pulse oxygen saturation 30% oxygen supplementation 99% saturation recorded. HEENT: Examination shows head was atraumatic. Eyes nonicterus. The patient remains currently orally intubated. NECK: Supple. CARDIOVASCULAR: S1, S2 is audible. LUNGS: Scattered occasional crackles. No wheezing. ABDOMEN: Soft and nontender. EXTREMITIES: Noted with loss of muscle mass. The patient is chronic secondary to traumatic brain injury. The contracture of the extremities was noted. SKIN: Visible skin, no lesions or any rashes. LABORATORY DATA: The chest x-ray of the patient, which was done for the patient this morning, endotracheal tube noted in appropriate position. Multilumen catheter remains in place, diffuse pulmonary infiltration. Culture of the endotracheal aspirate noted Citrobacter species, which are noted sensitivity to Rocephin, ciprofloxacin and multiple other antibiotics. The culture of the bronchial washing was noted with preliminary gram-negative rods with pending identification sensitivities. CT scan of chest, abdomen and pelvis, which was done yesterday was noted with CT scan of the abdomen and pelvis finding. No acute abnormalities. A diffuse infiltration noted still in the left lung for this patient with associated small pleural fluid. Anemia, status post blood transfusion, the patient brought with improvement in hemoglobin and hematocrit. PLAN OF TREATMENT: No changes in the plan of therapy of the patient at the present time. Continue current mechanical ventilation for the patient with oxygen supplementation. Continue antibiotic intravenously for the current gram-negative pneumonia, most likely related to the aspiration. How the deescalation of the antibiotics, patient will be started based on the current [place], [place] PROGRESS NOTE NAME: SOTO GONZALEZ UNIT #: [id number] ROOM: [facility] DOCTOR: BAUTISTA BRANDON MD BIRTHDATE: [birth year] results of the patient. The Levaquin and the vancomycin will be discontinued. The patient to continue meropenem at the present time. Continue to maximize the nutrition support. Obtain another prealbumin level tomorrow for the patient to assess the protein calorie malnutrition management of current nutrition support. Consideration of long-term acute care facility placement for the long-term management where acute care would be recommended. Continue monitoring for the patient's anemia and manage the patient accordingly with the help of GI consultation. Supportive therapy, plan of management at this time Usual care. Other supportive plan of management and other care. Usual treatment. Additional treatment changes to be done for the patient based on progression of the illness. Total time for pulmonary critical evaluation and management today was 33 minutes. BAUTISTA MORGAN MD CM:PNTRANS [id number] BAUTISTA MCDONOUGH MD 08/11/177 interface
--- NOTE | ~2017-08-06 | CON ---
[place], [place] REPORT OF CONSULTATION NAME: SOTO GONZALEZ UNIT #: [id number] ROOM: [facility] DOCTOR: TATE BARROS MD BIRTHDATE: [birth year] DOS: 08/09/2017 HISTORY OF PRESENT ILLNESS: A 37-year-old patient who has presented to the hospital with multiple medical issues, among which has been respiratory insufficiency, pneumonic infiltrate, left upper and left lower infiltration of the lung, respiratory insufficiency with hypoxemia and hypercapnia, acidosis. He had to be admitted and intubated. The patient is known with cerebrovascular accident, status post head trauma years ago. The patient has presented today with hemoglobin of 5 and we are concerned about the source of bleeding. This patient has multiple decubitus ulcers, protein-calorie malnutrition, low albumin, and at the present time, undergoing antibiotic management of his pneumonic infiltrate. His latest H and H has been 5 and 21 with platelet of 81. His latest basic metabolic panel, electrolytes, sodium 147, chloride 114, hypernatremic and hyperchloremic with calcium of 7.0. His routine cultures with normal linus. His chest x-ray and again, chest CT followup, pneumonic infiltrate confirmed. PAST MEDICAL HISTORY: Multiple decubitus ulcers, paraplegia, hypertension, traumatic brain injury years ago. PAST SURGICAL HISTORY: Appendectomy and hernia repair. The patient is intubated, I cannot verify details with him. SOCIAL HISTORY: Passive smoker, nonalcohol consumer. FAMILY HISTORY: Unable to obtain from the patient, that is mostly relied on old consult and H and P. ALLERGIES: PENICILLIN, BENZOCAINE. MEDICATIONS AT HOME: Reviewed. The patient has been on Pepcid, baclofen as well, and pain management and others as reviewed. REVIEW OF SYSTEMS: Cannot be obtained from him, intubated status. PHYSICAL EXAMINATION: GENERAL: Paraplegic, wasted muscles, sunken eye sockets, intubated patient who attempts to be alert. HEENT: Muscle wasting in temporal mastication muscles as well. NECK: Thin. LUNGS: Left lung with decreased air entry. The patient is with respirator assisted breath. HEART: Normal sinus rhythm. No gallop, no murmur. ABDOMEN: Soft. No hepato-organomegaly. Bowel sounds present. PEG tube in place, functional. EXTREMITIES: Muscle wasting in all extremities noticed. NEUROLOGIC: Appears to be alert. He is responding with his eyes to my command. IMPRESSION: Severe anemia, multifactorial secondary to numerous decubiti on back, sacrum and heels, protein-calorie malnutrition, paraplegia, status post [place], [place] REPORT OF CONSULTATION NAME: SOTO GONZALEZ UNIT #: [id number] ROOM: [facility] DOCTOR: TATE BARROS MD BIRTHDATE: [birth year] traumatic brain injury, bedridden, neurogenic dysphagia, status post PEG tube placement, presently respiratory insufficiency, pneumonic infiltrate, status post intubation. PLAN AND DISCUSSION: At this stage, I suggest PPI management as well as resumption of feeding, transfusion, supportive management otherwise. The anemia is multifactorial, and therefore, it can be managed in this particular patient with tender loving care unless gross bloody bowel movements are noticed. His renal status is okay. He does not have much contribution from renal insufficiency and he does not have thrombocytopenia as well. He is not on chronic anticoagulants as well as antiplatelet; therefore, those contributions are off the table. TATE BARROS MD CM:CONSTR:REPORT OF CONSULTATION [id number] 08/10/17 0620 interface
[~2017-08-06 16:41] MED LIST changes: +BACLOFEN20 M1 PEG; -BACLOFEN20 M1 PO; +CELEXA40 MG PEG; -CELEXA40 MG PO
[2017-08-06 17:28] LABS: ABG BASE EXCESS 5.4 mmol/L (-2.0-2.0); ABG HCO3 30.9 mmol/l (22-26); ABG O2 SATURATION 78.7 % (95-97); ARTERIAL BLOOD GAS PCO2 57.2 mmHg (35-45); ARTERIAL BLOOD GAS PH 7.361 (7.35-7.45); ARTERIAL BLOOD GAS PO2 51.3 mmHg (80-90)
[2017-08-06 17:43] LABS: BASO % 0.3 % (0.0-1.0); HEMATOCRIT 31.8 % (42.0-52.0); HEMOGLOBIN 8.8 g/dl (14.0-18.0); LYMPH # 0.6 10*3/uL (1.3-4.4); LYMPH % 6.1 % (27.0-41.0); MEAN CELL VOLUME 88.1 fl (80.0-94.0); MEAN CORPUSCULAR HGB 24.4 pg (27.0-31.0); MEAN CORPUSCULAR HGB CONC 27.7 g/dl (33.0-37.0); MEAN PLATELET VOLUME 12.5 fl (9.6-12.3); MONO # 0.9 10*3/uL (0.1-1.0); MONO % 8.9 % (3.0-9.0); NEUT # 8.5 10*3/uL (2.3-7.9); NEUT % 84.1 % (47.0-73.0); PLATELET COUNT AUTOMATED 303 10*3/uL (130-400); RED BLOOD COUNT 3.61 10*6/uL (4.50-5.90); RED CELL DISTRI WIDTH 16.3 % (0-14.5); WHITE BLOOD COUNT 10.1 10*3/uL (4.8-10.8)
[2017-08-06 17:50] LABS: ABG BASE EXCESS 6.8 mmol/L (-2.0-2.0); ABG HCO3 32.7 mmol/l (22-26); ABG O2 SATURATION 92.1 % (95-97); ARTERIAL BLOOD GAS PH 7.345 (7.35-7.45); ARTERIAL BLOOD GAS PO2 78.1 mmHg (80-90)
[2017-08-06 17:57] LABS: BILIRUBIN NEGATIVE (NEGATIVE); BLOOD 1+ (NEGATIVE); CLARITY CLEAR (CLEAR); COLOR YELLOW (YELLOW); GLUCOSE NEGATIVE (NEGATIVE); KETONE NEGATIVE (NEGATIVE); LEUKO ESTERASE NEGATIVE (NEGATIVE); NITRITE NEGATIVE (NEGATIVE)
[2017-08-06 17:58] LABS: ALBUMIN 1.8 gm/dl (3.1-4.5); ALKALINE PHOSPHATASE 120 U/L (45-117); BUN 18 mg/dl (7-24); CHLORIDE 99 mmol/L (98-107); CREATININE 0.25 mg/dL (0.70-1.30); SGOT/AST 15 IU/L (3-35); SGPT/ALT 13 U/L (12-78); SODIUM 141 mmol/L (136-145); TOTAL PROTEIN 6.8 gm/dL (6.4-8.2)
[2017-08-06 18:11] LABS: BACTERIA TRACE; EPITHELIAL CELLS 0-2
[2017-08-07] VITALS: BP 105/58
[2017-08-07 04:00] VITALS: BP 88/52
[2017-08-07 05:12] LABS: HEMATOCRIT 29.2 % (42.0-52.0); HEMOGLOBIN 8.4 g/dl (14.0-18.0); MEAN CELL VOLUME 85.9 fl (80.0-94.0); MEAN CORPUSCULAR HGB 24.7 pg (27.0-31.0); MEAN CORPUSCULAR HGB CONC 28.8 g/dl (33.0-37.0); MEAN PLATELET VOLUME 12.4 fl (9.6-12.3); PLATELET COUNT AUTOMATED 272 10*3/uL (130-400); WHITE BLOOD COUNT 15.2 10*3/uL (4.8-10.8)
[2017-08-07 05:28] LABS: BUN 20 mg/dl (7-24); CHLORIDE 108 mmol/L (98-107); CREATININE 0.25 mg/dL (0.70-1.30); POTASSIUM 3.9 mmol/L (3.5-5.1); SODIUM 145 mmol/L (136-145)
[2017-08-07 05:32] LABS: CHOLESTEROL 76 mg/dL (<200); FREE T4 1.42 ng/dl (0.76-1.46); HDL CHOLESTEROL 32 mg/dl (40-60); LDL CHOLESTEROL 33 mg/dL (9-159); PHOSPHOROUS 3.3 mg/dL (2.5-4.9); TRIGLYCERIDES 53 mg/dl (<150); VLDL CHOLESTEROL 11 mg/dL (6-40)
[2017-08-07 05:34] LABS: PLATELET SUFFICIENCY NORMAL (NORMAL); POLYCHROMASIA SLIGHT; TOTAL CELLS COUNTED 100 #CELLS
[2017-08-07 07:02] LABS: VITAMIN D, 25-HYDROXY 27.7 ng/mL (30-100)
[2017-08-07 07:25] LABS: ABG BASE EXCESS 3.6 mmol/L (-2.0-2.0); ABG HCO3 27.1 mmol/l (22-26); ABG O2 SATURATION 80.7 % (95-97); ARTERIAL BLOOD GAS PCO2 38.1 mmHg (35-45); ARTERIAL BLOOD GAS PH 7.466 (7.35-7.45)
[2017-08-07 08:00] VITALS: BP 122/65
[2017-08-07 08:17] LABS: ABG BASE EXCESS 2.7 mmol/L (-2.0-2.0); ABG HCO3 27.6 mmol/l (22-26); ABG O2 SATURATION 18.8 % (95-97)
[2017-08-07 08:19] LABS: ARTERIAL BLOOD GAS PCO2 50.8 mmHg (35-45); ARTERIAL BLOOD GAS PH 7.363 (7.35-7.45)
[2017-08-07 09:13] LABS: ABG HCO3 25.1 mmol/l (22-26); ABG O2 SATURATION 77.9 % (95-97); ARTERIAL BLOOD GAS PCO2 43.1 mmHg (35-45); ARTERIAL BLOOD GAS PH 7.391 (7.35-7.45); ARTERIAL BLOOD GAS PO2 51.5 mmHg (80-90)
[2017-08-07] MEDS ORDERED: PEPCID20 MG PEG (10:28)
[2017-08-07] MEDS ORDERED: NATURE'S BLEND100 M2 PEG (10:30)
[2017-08-07] MEDS ORDERED: BACLOFEN20 M1 PEG (10:34)
[2017-08-07] MEDS ORDERED: FENTANYL1 EAC2 TD (10:39)
[2017-08-07] MEDS ORDERED: OXYCODONE5 M1 PEG (10:40)
[2017-08-07] MEDS ORDERED: MIRALAX17 GM PEG (10:43)
[2017-08-07 11:58] LABS: ABG BASE EXCESS 3.1 mmol/L (-2.0-2.0); ABG HCO3 25.6 mmol/l (22-26); ARTERIAL BLOOD GAS PCO2 33.7 mmHg (35-45); ARTERIAL BLOOD GAS PH 7.499 (7.35-7.45)
[2017-08-07 12:00] VITALS: BP 101/62
[2017-08-07 14:40] LABS: ABG BASE EXCESS 2.7 mmol/L (-2.0-2.0); ABG HCO3 23.8 mmol/l (22-26); ABG O2 SATURATION 99.4 % (95-97); ARTERIAL BLOOD GAS PCO2 24.4 mmHg (35-45); ARTERIAL BLOOD GAS PH 7.598 (7.35-7.45)
[2017-08-07 16:00] VITALS: BP 115/69
[2017-08-07 17:29] LABS: VALPROIC ACID (DEPAKENE) 14.2 ug/ml (50-100)
[2017-08-07 17:33] LABS: TROPONIN I 0.179 ng/ml (<0.045)
[2017-08-07 20:00] VITALS: BP 118/68
[2017-08-08] VITALS: BP 110/63
[2017-08-08 04:00] VITALS: BP 102/59
[2017-08-08 07:20] LABS: ABG BASE EXCESS 3.3 mmol/L (-2.0-2.0); ABG HCO3 25.1 mmol/l (22-26); ABG O2 SATURATION 97.9 % (95-97); ARTERIAL BLOOD GAS PCO2 28.4 mmHg (35-45); ARTERIAL BLOOD GAS PH 7.56 (7.35-7.45); ARTERIAL BLOOD GAS PO2 91.9 mmHg (80-90)
[2017-08-08 07:57] LABS: BUN 16 mg/dl (7-24); CHLORIDE 115 mmol/L (98-107); CREATININE 0.25 mg/dL (0.70-1.30); SODIUM 150 mmol/L (136-145)
[2017-08-08 07:58] LABS: POTASSIUM 2.9 mmol/L (3.5-5.1)
[2017-08-08 08:00] VITALS: BP 104/62
[2017-08-08 08:43] LABS: BASO % 0.2 % (0.0-1.0); HEMATOCRIT 24.4 % (42.0-52.0); LYMPH # 0.9 10*3/uL (1.3-4.4); MEAN CELL VOLUME 85.6 fl (80.0-94.0); MEAN CORPUSCULAR HGB 24.6 pg (27.0-31.0); MEAN CORPUSCULAR HGB CONC 28.7 g/dl (33.0-37.0); MEAN PLATELET VOLUME 11.8 fl (9.6-12.3); MONO # 0.5 10*3/uL (0.1-1.0); MONO % 6.3 % (3.0-9.0); NEUT # 7.1 10*3/uL (2.3-7.9); NEUT % 82.9 % (47.0-73.0); PLATELET COUNT AUTOMATED 246 10*3/uL (130-400); RED BLOOD COUNT 2.85 10*6/uL (4.50-5.90); RED CELL DISTRI WIDTH 16.4 % (0-14.5); WHITE BLOOD COUNT 8.5 10*3/uL (4.8-10.8)
[2017-08-08 11:44] LABS: ABG HCO3 24.7 mmol/l (22-26); ABG O2 SATURATION 99.2 % (95-97); ARTERIAL BLOOD GAS PCO2 45.3 mmHg (35-45); ARTERIAL BLOOD GAS PH 7.36 (7.35-7.45)
[2017-08-08 12:00] VITALS: BP 104/48
[2017-08-08 13:05] LABS: ABG BASE EXCESS 1.6 mmol/L (-2.0-2.0); ABG HCO3 25.4 mmol/l (22-26); ABG O2 SATURATION 88.9 % (95-97); ARTERIAL BLOOD GAS PCO2 39.7 mmHg (35-45); ARTERIAL BLOOD GAS PH 7.425 (7.35-7.45); ARTERIAL BLOOD GAS PO2 61.5 mmHg (80-90)
[2017-08-08 16:00] VITALS: BP 92/51
[2017-08-08 16:10] LABS: INTERNATIONAL NORM RATIO 1.2 (2.0-3.5)
[2017-08-08 16:23] LABS: ABG BASE EXCESS 1.2 mmol/L (-2.0-2.0); ABG HCO3 25.1 mmol/l (22-26); ABG O2 SATURATION 97.5 % (95-97); ARTERIAL BLOOD GAS PCO2 38.6 mmHg (35-45); ARTERIAL BLOOD GAS PH 7.428 (7.35-7.45)
[2017-08-08 20:00] VITALS: BP 86/49
[2017-08-08 21:25] LABS: BILIRUBIN NEGATIVE (NEGATIVE); BLOOD NEGATIVE (NEGATIVE); CLARITY CLEAR (CLEAR); COLOR YELLOW (YELLOW); GLUCOSE NEGATIVE (NEGATIVE); KETONE TRACE (NEGATIVE); LEUKO ESTERASE NEGATIVE (NEGATIVE); NITRITE NEGATIVE (NEGATIVE); PH 5.5 (5.0-9.0); SPECIFIC GRAVITY 1.025 (1.005-1.030); UROBILINOGEN 0.2 E.U./dl (0.2-1.0)
[2017-08-08 21:55] LABS: BACTERIA 2+; EPITHELIAL CELLS 0-2; MUCOUS TRACE; RBC 0-2 rbc/hpf (0-2)
[2017-08-09] VITALS (11 sets, daily range): BP systolic 89–102; BP diastolic 46–59
[2017-08-09 05:32] LABS: BUN 11 mg/dl (7-24); CHLORIDE 114 mmol/L (98-107); CREATININE < 0.15 mg/dL (0.70-1.30); POTASSIUM 3.8 mmol/L (3.5-5.1); SODIUM 147 mmol/L (136-145)
[2017-08-09 06:10] LABS: MEAN CELL VOLUME 87.9 fl (80.0-94.0); MEAN CORPUSCULAR HGB 24.3 pg (27.0-31.0); MEAN CORPUSCULAR HGB CONC 27.6 g/dl (33.0-37.0); MEAN PLATELET VOLUME 12.7 fl (9.6-12.3); PLATELET COUNT AUTOMATED 181 10*3/uL (130-400); RED BLOOD COUNT 2.39 10*6/uL (4.50-5.90); RED CELL DISTRI WIDTH 16.2 % (0-14.5); WHITE BLOOD COUNT 6.9 10*3/uL (4.8-10.8)
[2017-08-09 06:40] LABS: PLATELET SUFFICIENCY NORMAL (NORMAL); POLYCHROMASIA MARKED; TOTAL CELLS COUNTED 100 #CELLS
[2017-08-09 06:42] LABS: HEMOGLOBIN 5.8 g/dl (14.0-18.0)
[2017-08-09 07:21] LABS: ABG HCO3 24.5 mmol/l (22-26); ARTERIAL BLOOD GAS PCO2 35.9 mmHg (35-45); ARTERIAL BLOOD GAS PH 7.45 (7.35-7.45)
[2017-08-09 07:23] LABS: ABG O2 SATURATION 100.2 % (95-97)
[2017-08-09 13:45] LABS: HEMATOCRIT 26.2 % (42.0-52.0); HEMOGLOBIN 7.7 g/dl (14.0-18.0)
[2017-08-09 15:08] LABS: ACID FAST SPEC PROCESSING Concentration (.)
[2017-08-10] VITALS (8 sets, daily range): BP systolic 91–111; BP diastolic 51–62
[2017-08-10 05:53] LABS: BUN 6 mg/dl (7-24); CHLORIDE 111 mmol/L (98-107); CREATININE 0.22 mg/dL (0.70-1.30); POTASSIUM 3.5 mmol/L (3.5-5.1); SODIUM 148 mmol/L (136-145)
[2017-08-10 06:10] LABS: BASO % 0.3 % (0.0-1.0); EOS # 0.1 10*3/uL (0.0-0.4); EOS % 0.8 % (1.0-4.0); HEMATOCRIT 28.3 % (42.0-52.0); HEMOGLOBIN 8.2 g/dl (14.0-18.0); LYMPH # 0.8 10*3/uL (1.3-4.4); LYMPH % 11.3 % (27.0-41.0); MEAN CELL VOLUME 87.1 fl (80.0-94.0); MEAN CORPUSCULAR HGB 25.2 pg (27.0-31.0); MEAN PLATELET VOLUME 12.5 fl (9.6-12.3); MONO # 0.4 10*3/uL (0.1-1.0); MONO % 6.2 % (3.0-9.0); NEUT # 5.7 10*3/uL (2.3-7.9); NEUT % 80.3 % (47.0-73.0); PLATELET COUNT AUTOMATED 188 10*3/uL (130-400); RED BLOOD COUNT 3.25 10*6/uL (4.50-5.90); RED CELL DISTRI WIDTH 15.7 % (0-14.5); WHITE BLOOD COUNT 7.1 10*3/uL (4.8-10.8)
[2017-08-10 07:34] LABS: ABG BASE EXCESS 7.2 mmol/L (-2.0-2.0); ABG HCO3 30.9 mmol/l (22-26); ABG O2 SATURATION 99.9 % (95-97); ARTERIAL BLOOD GAS PCO2 42.5 mmHg (35-45); ARTERIAL BLOOD GAS PH 7.479 (7.35-7.45)
== END 2017-08-10 16:00 | DRG 871 ==
LOC: ED 16:41 → ICCU 18:11 → EDHOLD 18:11 → ICCU 18:50
PROVIDERS: Emergency Medicine; Internal Medicine; Internal Medicine Critical Care Medicine; Student in an Organized Health Care Education/Training Program
PROC: 0BH17EZ Insertion of Endotracheal Airway into Trachea, Via Natural or Artificial Opening (ICD-10-PCS; principal; 2017-08-06)
PROC: 5A1945Z Respiratory Ventilation, 24-96 Consecutive Hours (ICD-10-PCS; principal; 2017-08-06)
PROC: 0BC38ZZ Extirpation of Matter from Right Main Bronchus, Via Natural or Artificial Opening Endoscopic (ICD-10-PCS; 2017-08-08)
PROC: B548ZZA Ultrasonography of Superior Vena Cava, Guidance (ICD-10-PCS; 2017-08-08)
PROC: 0BC18ZZ Extirpation of Matter from Trachea, Via Natural or Artificial Opening Endoscopic (ICD-10-PCS; 2017-08-08)
PROC: 0BC78ZZ Extirpation of Matter from Left Main Bronchus, Via Natural or Artificial Opening Endoscopic (ICD-10-PCS; 2017-08-08)
PROC: 0BC88ZZ Extirpation of Matter from Left Upper Lobe Bronchus, Via Natural or Artificial Opening Endoscopic (ICD-10-PCS; 2017-08-08)
PROC: 0BC68ZZ Extirpation of Matter from Right Lower Lobe Bronchus, Via Natural or Artificial Opening Endoscopic (ICD-10-PCS; 2017-08-08)
PROC: 02HV33Z Insertion of Infusion Device into Superior Vena Cava, Percutaneous Approach (ICD-10-PCS; 2017-08-08)
PROC: 0BC58ZZ Extirpation of Matter from Right Middle Lobe Bronchus, Via Natural or Artificial Opening Endoscopic (ICD-10-PCS; 2017-08-08)
PROC: 0BCB8ZZ Extirpation of Matter from Left Lower Lobe Bronchus, Via Natural or Artificial Opening Endoscopic (ICD-10-PCS; 2017-08-08)
PROC: 0BC48ZZ Extirpation of Matter from Right Upper Lobe Bronchus, Via Natural or Artificial Opening Endoscopic (ICD-10-PCS; 2017-08-08)
PROC: 30233N1 Transfusion of Nonautologous Red Blood Cells into Peripheral Vein, Percutaneous Approach (ICD-10-PCS; 2017-08-09)
DX: A41.9 Sepsis, unspecified organism (principal); J69.0 Pneumonitis due to inhalation of food and vomit; R65.21 Severe sepsis with septic shock; G82.50 Quadriplegia, unspecified; J96.01 Acute respiratory failure with hypoxia; E43 Unspecified severe protein-calorie malnutrition; J96.02 Acute respiratory failure with hypercapnia; R34 Anuria and oliguria; L89.151 Pressure ulcer of sacral region, stage 1; L89.314 Pressure ulcer of right buttock, stage 4; L89.324 Pressure ulcer of left buttock, stage 4; E87.0 Hyperosmolality and hypernatremia; D62 Acute posthemorrhagic anemia; Z68.1 Body mass index [BMI] 19.9 or less, adult; T17.890A Other foreign object in other parts of respiratory tract causing asphyxiation, initial encounter; L89.222 Pressure ulcer of left hip, stage 2; X58.XXXA Exposure to other specified factors, initial encounter; E87.8 Other disorders of electrolyte and fluid balance, not elsewhere classified; R73.9 Hyperglycemia, unspecified; E55.9 Vitamin D deficiency, unspecified; I10 Essential (primary) hypertension; G89.29 Other chronic pain; L89.521 Pressure ulcer of left ankle, stage 1; L89.892 Pressure ulcer of other site, stage 2; R19.5 Other fecal abnormalities; E87.6 Hypokalemia; Z88.0 Allergy status to penicillin; Z88.4 Allergy status to anesthetic agent; Z79.899 Other long term (current) drug therapy; Z90.49 Acquired absence of other specified parts of digestive tract; Z87.891 Personal history of nicotine dependence; Y93.89 Activity, other specified; Y92.89 Other specified places as the place of occurrence of the external cause; Y99.8 Other external cause status; Z87.820 Personal history of traumatic brain injury; Z93.1 Gastrostomy status; Z74.01 Bed confinement status